=== PATIENT | male | born 1995 ===

== ENCOUNTER 2016-10-17 20:00 | Emergency (ER) | payer OTHER ==
--- NOTE | 2016-10-17 21:33 | C.PDOC ---
History Of Present Illness A 21 y/o M c/o sore throat and cough that began yesterday. Notes he came form [place] yesterday. States and was took a full course of Cefpodoxime 1 month ago for another infection. Denies fever, vomiting, diarrhea, rash, chills, ear pain , abdominal pain, or any other complaints. Time Seen by Provider: 10/17/16 20:23 Chief Complaint (Nursing): ENT Problem History Per: Patient History/Exam Limitations: no limitations Onset/Duration Of Symptoms: Days Current Symptoms Are (Timing): Still Present Severity: Mild Recent travel outside of the [place]: Yes ([place]) Additional History Per: Patient Past Medical History Reviewed: Historical Data, Nursing Documentation, Vital Signs Vital Signs: Last Vital Signs Temp 97.7 F 10/17/16 21:43 Pulse 93 H 10/17/16 21:43 Resp 18 10/17/16 21:43 BP 107/74 10/17/16 21:43 Pulse Ox 98 10/17/16 21:58 - Medical History PMH: No Chronic Diseases Family History: States: No Known Family Hx - Social History Hx Alcohol Use: Yes Hx Substance Use: No - Immunization History Hx Tetanus Toxoid Vaccination: No Hx Influenza Vaccination: No Hx Pneumococcal Vaccination: No Review Of Systems Except As Marked, All Systems Reviewed And Found Negative. Constitutional: Negative for: Fever, Chills ENT: Positive for: Throat Pain. Negative for: Ear Pain Respiratory: Positive for: Cough Gastrointestinal: Negative for: Abdominal Pain Physical Exam - Physical Exam Appears: Non-toxic, No Acute Distress Skin: Warm, Dry, No Rash Head: Atraumatic, Normacephalic Eye(s): bilateral: Normal Inspection, PERRL, EOMI Ear(s): Bilateral: Normal Oral Mucosa: Moist Throat: Erythema, Exudate Neck: Normal ROM, Supple Chest: Symmetrical, No Tenderness Cardiovascular: Rhythm Regular, No Friction Rub, No Murmur Respiratory: Normal Breath Sounds, No Rales, No Rhonchi, No Wheezing Gastrointestinal/Abdominal: Soft, No Tenderness Extremity: Normal ROM Neurological/Psych: Oriented x3, Normal Speech, Normal Cognition Gait: Steady ED Course And Treatment O2 Sat by Pulse Oximetry: 98 (RA) Pulse Ox Interpretation: Normal Medical Decision Making Medical Decision Making: Impression: A 21 y/o M c/o sore throat and cough that began yesterday. Plans: * Zithromax * Motrin Disposition - Disposition Referrals: [facility] [Outside] Disposition: HOME/ ROUTINE Disposition Time: 21:30 Condition: GOOD Additional Instructions: Follow up with the medical doctor within 1-2 days. Return if worsened. Prescriptions: Azithromycin [Zithromax] 250 mg PO DAILY #4 tab predniSONE [Prednisone] 20 mg PO BID #10 tab Instructions: Pharyngitis (ED) Forms: [employer] (Nepalese) - Clinical Impression Clinical Impression: Pharyngitis - Scribe Statement The provider has reviewed the documentation as recorded by the Scribe Bill lopez All medical record entries made by the Ihsanibe were at my direction and personally dictated by me. I have reviewed the chart and agree that the record accurately reflects my personal performance of the history, physical exam, medical decision making, and the department course for this patient. I have also personally directed, reviewed, and agree with the discharge instructions and disposition.
[2016-10-17 21:44] VITALS: BP 107/74; PULSE 93; RESP 18; TEMP 97.7
[2016-10-17 21:56] VITALS: O2SAT 98
== END 2016-10-17 21:44 | disposition home or self-care (01) ==
LOC: C.ER 20:00
DX: J02.9 Acute pharyngitis, unspecified (principal)